=== PATIENT | male | born 1975 | race Caucasian/White ===

== ENCOUNTER 2019-12-10 14:14 | Outpatient (CLI) | payer SELFPAY ==
--- NOTE | 2019-12-10 14:26 | XR_ITS ---
WS: [id number] Exam: XR chest 2V* [id number] Date/Time of Exam: 12/10/2019 2:26 PM Reason For Exam: DYSPNEA/COUGH/EDEMA Findings: No priors. The lungs are clear and fully inflated. Heart size is top limits normal. No pleural effusions. The me diastinum and bony thorax are unremarkable. XR/XR chest 2V* [id number] IMPRESSION: 1. No acute cardiopulmonary finding.
== END 2019-12-10 14:15 | disposition home or self-care (01) ==
PROVIDERS: PCP Nurse Practitioner Family; Visit Provider Nurse Practitioner Family
DX: R06.00 Dyspnea, unspecified (principal); R05 Cough; R60.0 Localized edema
CPT/HCPCS: 71046

== ENCOUNTER → 2020-11-17 15:20 | Outpatient (BNVA) | payer SELFPAY | PROVIDERS: PCP Family Medicine; Visit Provider Internal Medicine | DX: Z01.812 Encounter for preprocedural laboratory examination (principal); Z20.822 Contact with and (suspected) exposure to COVID-19; Z80.0 Family history of malignant neoplasm of digestive organs; K92.1 Melena | CPT/HCPCS: 87635 ==

== ENCOUNTER 2020-11-24 06:49 | Day surgery (SDC) | payer SELFPAY ==
[2020-11-24 07:08] VITALS: BP 148/82; PULSE 100; RESP 18; TEMP 36.3; O2SAT 96
[2020-11-24] MEDS: sodium chloride 0.9% 1,000 ML 30 ML IV (07:15)
--- NOTE | 2020-11-24 07:44 | W.PM.OPSFHP ---
Same Day Surgery H&P Indication for Procedure/HPI DATE OF PROCEDURE: November 24, 2020 CHIEF COMPLAINT/INDICATIONFOR SURGICAL PROCEDURE: Screening family history of colon cancer PREOP DIAGNOSIS: FH PLANNED PROCEDRUE: Operation Date: 11/24/20 07:30 Proposed Procedures p Colonoscopy 37747 z80.0(Not Applicable) - Amandeep Juarez MD Medications/Allergies* Home Medications Medication Instructions Recorded Confirmed Type furosemide 40 mg tablet 40 mg PO BID 11/03/20 11/24/20 History lisinopril 20 mg tablet 20 mg PO DAILY 11/03/20 11/24/20 History metolazone 5 mg tablet 5 mg PO DAILY 11/17/20 11/24/20 History metoprolol tartrate 100 mg tablet 100 mg PO BID 11/17/20 11/24/20 History omeprazole 20 mg tablet,delayed 20 mg PO DAILY 11/17/20 11/24/20 History release pregabalin 100 mg capsule 100 mg PO BID 11/17/20 11/24/20 History spironolactone 25 mg tablet 25 mg PO DAILY 11/17/20 11/24/20 History potassium chloride 10 meq PO DAILY 11/20/20 11/24/20 History Allergies/Adverse Reactions Allergy/AdvReac Type Severity Reaction Status Date / Time No Known Allergies Allergy Verified 11/17/20 14:47 Current Medications: Generic Name Dose Route Start Last Admin Trade Name Freq PRN Reason Stop Dose Admin Sodium Chloride 1,000 mls @ 30 mls/hr 11/24/20 07:00 11/24/20 07:15 Sodium Chloride 0.9% IV 30 mls/hr .Q24H [place] Administration Pertinent History/Comorbid Conditions* Family History (Updated 11/17/20 @ 14:54 by JING Banks) Cancer Mother Father Social History Smoking and tobacco status: never smoked Alcohol intake: never Adopted: No Marital status: Single Number of children: 1 service: No History of recent travel: No Pertinent Exam Findings alert, oriented x 3, clear to auscultation bilaterally, regular rate & rhythm, operative site marked and procedure specific exam findings Recommendations Surgery/Procedure today Coding Level of Care Code Acute Physical Therapist Technician for Wilson Kim
--- NOTE | 2020-11-24 07:49 | ANES.PREANE2 ---
Pre-Anesthetic Assessment Pre-Anesthetic Assessment: Height/Weight: Height 1.78 m Weight 176.901 kg Temp Pulse Resp BP Pulse Ox 97.3 F L 100 18 148/82 96 11/24/20 07:08 11/24/20 07:08 11/24/20 07:08 11/24/20 07:08 11/24/20 07:08 Preop Diagnosis: FH Proposed Procedure: Operation Date: 11/24/20 07:30 Proposed Procedures p Colonoscopy 46668 z80.0(Not Applicable) - Amandeep Juarez MD Was Clonidine taken within 24 hours: N/A Last intake: Intake Last Liquid Date 11/23/20 Last Liquid Time 23:00 Last Solid Date 11/22/20 Last Solid Time 00:00 Social: Social History: No alcohol and No tobacco Exam: Pre-Anes Outpt Exam: alert, oriented x 3 and regular rate & rhythm Airway: Submandibular: WNL Cervical ROM: WNL Dentition: Chipped History/ROS: No significant history except as noted Pulmonary: Pulmonary: Sleep apnea and SOB CV/HEM: CV/HEM: HTN : : None reported Hepatic: Hepatic: None reported GI: GI: GERD Metabolic: Metabolic: DM and Morbid obesity Musc/skel: Musc/skel: Lower Back Pain Anesthetic Plan: ASA status: 3 Anesthesia: Anesthesia Evaluation and MAC Risk of > 500 ml blood loss (7ml/kg in children): No Meds/Allergies Current Medications: Current Medications Generic Name Dose Route Start Last Admin Trade Name Freq PRN Reason Stop Dose Admin Sodium Chloride 1,000 mls @ 30 ml s/hr 11/24/20 07:00 11/24/20 07:15 Sodium Chloride 0.9% IV 30 mls/hr .Q24H [place] Administration PFSH Anesthesia PFSH: Family History (Updated 11/17/20 @ 14:54 by JING Banks) Mother Cancer Father Cancer Social History (Updated 11/17/20 @ 14:55 by JING Banks) Smoking and tobacco status: never smoked Alcohol intake: never Adopted: No Marital status: Single Number of children: 1 service: No History of recent travel: No Data Anesthesia Cardiac Studies: No Data to Display
[2020-11-24 08:34] VITALS: BP 100/55; PULSE 88; RESP 16; TEMP 36.3; O2SAT 93
[2020-11-24 08:51] VITALS: BP 115/65; PULSE 80; RESP 20; O2SAT 95
--- NOTE | 2020-11-24 14:56 | ANE.PACU2 ---
Inpatient post-anesthesia follow up: Airway intact: Yes Vital signs: Temperature 97.4 F Pulse Rate 80 Respiratory Rate 20 Blood Pressure 115/65 Pulse Oximetry 95 Oxygen Delivery Me thod Room Air Oxygen Flow Rate Fraction of Inspir ed Oxygen Hydration adequate: Yes Nausea and vomiting: No Pain level: 2 Mental status: Baseline
== END 2020-11-24 09:12 | disposition home or self-care (01) ==
PROVIDERS: PCP Family Medicine; Visit Provider Internal Medicine
PROC: 0DJD8ZZ Inspection of Lower Intestinal Tract, Via Natural or Artificial Opening Endoscopic (ICD-10-PCS; CPT 45378; principal; 2020-11-24 07:30)
DX: Z12.11 Encounter for screening for malignant neoplasm of colon (principal); Z80.0 Family history of malignant neoplasm of digestive organs; I10 Essential (primary) hypertension; K21.9 Gastro-esophageal reflux disease without esophagitis; E11.9 Type 2 diabetes mellitus without complications; E66.01 Morbid (severe) obesity due to excess calories; Z68.43 Body mass index [BMI] 50.0-59.9, adult
CPT/HCPCS: 45378; 96360; J2704; J7030

== ENCOUNTER 2023-09-07 18:51 | Emergency (ER) | payer SELFPAY ==
[2023-09-07 18:54] VITALS: BP 159/91; PULSE 66; RESP 16; TEMP 37.1; O2SAT 97
[2023-09-07 18:58] VITALS: PULSE 66; RESP 16; O2SAT 97
[2023-09-07] MEDS: lidocaine 2% INJ 20 mL INJECTION (19:18)
--- NOTE | 2023-09-07 19:34 | W.ED.WOUNDLC ---
HPI - Wound/Laceration General: Chief Complaint: Wound/Laceration Stated Complaint: lac on forehead Time Seen by Provider: 09/07/23 19:02 Source: patient Mode of arrival: ambulatory Limitations: no limitations History of Present Illness: Patient is a 47-year-old male presenting to the emergency department complaining of laceration above his left eyebrow onset prior to arrival. Patient states he hit it on a piece of metal farm equipment, and his tetanus is up-to-date. Bleeding controlled on arrival with direct pressure. No contamination and no other symptoms to report. He did not lose consciousness and there are no other concerning symptoms reported in terms of intracranial injury. No neurological symptoms reported. Has not taken anything for pain. Onset (ago): minute(s) Location: face Place: outdoors Patient tetanus UTD: Yes Context: accidental Associated symptoms: Reports no associated symptoms; Denies chills, fever(s), nausea or vomiting Treatments prior to arrival: bandage Review of Systems General: Reports: 10 or more systems reviewed and unremarkable except in HPI and below Const: Denies: fever(s) or chills Eyes: Denies: change in vision or blurry vision Card: Denies: chest pain Resp: Denies: dyspnea GI: Denies: abdominal pain, nausea, vomiting or diarrhea Musc: Denies: extremity pain or joint pain Skin/Breast: Reports: new lesions (Laceration above left eyebrow); Denies: rash, skin pain or skin tenderness Neuro: Denies: headache(s) PFSH ED PFSH: Medical History Peripheral neuropathy Type 2 diabetes mellitus Gout Hypertension Family history of colon cancer Hematochezia Surgical History H/O gastric sleeve History of appendectomy Family History Mother Cancer Father Cancer Social History Smoking and tobacco/nicotine status: never used tobacco/nicotine Alcohol intake: never Adopted: No Marital status: Single Number of children: 1 service: No Physical Exam Const: COMMON NORMALS: no acute distress, patient oriented x3, no limitations, healthy appearing, alert and well nourished HENMT: COMMON NORMALS: normocephalic and atraumatic HEAD & SCALP: normocephalic and atraumatic Eye: COMMON NORMALS: Equal, round and reactive pupils present and EOMs intact bilaterally PUPIL: Yes Equal, round and reactive pupils present Neck/C-Spine: COMMON NORMALS: full ROM, no lymphadenopathy, supple and no meningeal signs Resp: COMMON NORMALS: normal respiratory effort, No use of accessory muscles and clear to auscultation bilaterally AUSCULTATION: clear to auscultation bilaterally Cardio: COMMON NORMALS: regular rate and regular rhythm RATE: regular rate RHYTHM: regular rhythm Extremity: COMMON NORMALS: full ROM and capillary refill normal Neuro: COMMON NORMALS: patient oriented x3 SENSORIUM/ORIENTATION: Yes alert MENINGEAL SIGNS: Yes no meningeal signs Skin: COMMON NORMALS: turgor normal NARRATIVE SKIN EXAM: There is a 4 cm, linear laceration above the left eyebrow that has no active bleeding at this time and no signs of contamination. GENERAL SKIN EXAM: turgor normal Procedures Laceration Laceration 1: Site: face Side (If applicable): left Size (cm): 4 Description: linear Depth: simple, single layer Local Anesthetic: lidocaine 2% Amount of anesthesia used (mL): 3 Pre-repair: wound explored Skin layer closed with: nylon Size (cm): 5-0 Number of sutures: 6 Technique: simple, interrupted Course Vital Signs: Vital signs: Vital Signs Temperature 98.7 F 09/07/23 18:54 Pulse Rate 66 09/07/23 18:58 Respiratory Rate 16 09/07/23 18:58 Blood Pressure 159/91 09/07/23 18:54 Pulse Oximetry 97 09/07/23 18:58 Oxygen Delivery Me thod Room Air 09/07/23 18:54 MDM - Wound/Laceration Medical Decision Making Patient presented with a laceration, this was repaired. See procedure note. His tetanus was up-to-date. Wound did appear clean and was irrigated and cleaned with ChloraPrep, no need for antibiotics at this time. Proper wound care was discussed with the patient and he is informed to have them out in 5-7 days. Reasons to return were discussed such as if there are any signs of infection. Otherwise he will follow-up with primary care as needed. No radiology studies performed this visit Discharge Plan Discharge Patient Disposition: Home Clinical Impression: Laceration Condition: Stable Prescriptions: No Action lisinopril 20 mg tablet 20 mg PO DAILY metoprolol tartrate 100 mg tablet 100 mg PO BID allopurinol 100 mg tablet 100 mg PO DAILY pregabalin [Lyrica] 150 mg capsule 150 mg PO BID Qty: 60 5RF Discharge Orders: Discharge ED (Routine); Ordered 09/07/23 Ordered By: Chapin Saez Referrals: Darian Delgadillo MD [Primary Care Provider] - Discharge Diet: Usual diet Discharge Activity: Increase activity as tolerated Patient Instructions: Laceration (ED) Activity Restrictions/Additional Instructions: Sutures out in 5-7 days. Please do not soak the wound in water, you may dab clean with soap and water but otherwise keep dry at all times. Please monitor for any signs of infection such as any drainage or increased redness/swelling. You may ice to the area for any swelling. Tylenol and ibuprofen for pain. Follow-up with your primary care provider as needed. Coding Level of Care Code ED Drafter Geological for Wilson Kim
== END 2023-09-07 19:45 | disposition home or self-care (01) ==
PROVIDERS: Emergency Provider Physician Assistant; PCP Family Medicine
DX: S01.81XA Laceration without foreign body of other part of head, initial encounter (principal); E11.42 Type 2 diabetes mellitus with diabetic polyneuropathy; I10 Essential (primary) hypertension; W22.8XXA Striking against or struck by other objects, initial encounter
CPT/HCPCS: 12013; 99283